=== PATIENT | male | born 1965 | race Caucasian/White ===

== ENCOUNTER 2021-01-30 03:06 | Emergency (ER) | payer MEDICARE, MEDICAID ==
[~2021-01-30] VITALS: Ht 172.7 cm; Wt 109.0 kg
--- NOTE | 2021-01-30 03:10 | NUR ---
PT ARRIAVED AT 0225. SEE PAPER CHARTING FOR INITAL VITALS, TRIAGE, AND ASSESSMENT
--- NOTE | 2021-01-30 03:12 | NUR ---
LABS ALL ORDERED ON PAPER CHARTING DURING DOWN TIME. PT WAS DRAWN, PT ON ALL MONITORS.
--- NOTE | 2021-01-30 03:17 | NUR ---
PT TO CT
[2021-01-30 03:46] VITALS: BP 124/87
[2021-01-30 03:48] LABS: BASOPHILS % (AUTO) 0 % (0-1); EOSINOPHILS % (AUTO) 8 % (1-7); LYMPHOCYTES % (AUTO) 22 % (22-44); MD NO; MEAN CORPUSCULAR HEMOGLOBIN 32.1 pg (27.5-34.5); MEAN CORPUSCULAR HGB CONC 33.7 g/dL (33.2-36.2); MEAN PLATELET VOLUME 8.8 fL (7.4-10.4); MONOCYTES % (AUTO) 9 % (2-9); NEUTROPHILS % (AUTO) 61 % (42-75); PLATELET COUNT 267 x10^3/uL (130-400); RED BLOOD COUNT 4.38 x10^6/uL (4.38-5.82); RED CELL DISTRIBUTION WIDTH 13.7 % (9.4-14.8)
[2021-01-30 04:04] LABS: CHLORIDE 109 mmol/L (98-107)
[2021-01-30 04:05] LABS: ALANINE AMINOTRANSFERASE 34 U/L (12-78); ALBUMIN 2.6 g/dL (3.4-5.0); ALKALINE PHOSPHATASE 80 U/L (45-117); ANION GAP 4 mmol/L (5-15); BILIRUBIN,TOTAL 0.5 mg/dL (0.2-1.0); CALCIUM 8.6 mg/dL (8.5-10.1); CREATININE 0.96 mg/dL (0.7-1.3); TOTAL PROTEIN 6.6 g/dL (6.4-8.2)
[2021-01-30 04:06] LABS: TROPONIN I < 0.015 ng/mL (0.000-0.045)
[2021-01-30 04:20] LABS: MICROSCOPIC NOT IND
== END 2021-01-30 04:51 | disposition home or self-care (01) ==
LOC: ED 04:20
DX: R42 Dizziness and giddiness (principal); R05 Cough; L03.317 Cellulitis of buttock; L03.312 Cellulitis of back [any part except buttock and flank]; B86 Scabies; R06.02 Shortness of breath; Z72.9 Problem related to lifestyle, unspecified
CPT/HCPCS: 36415; 70450; 71045; 80053; 81003; 83880; 84484; 85025; 93005; 99285